=== PATIENT | male | born 1980 | race Caucasian/White ===

== ENCOUNTER 2017-01-20 06:51 | Emergency (ER) | payer OTHER ==
[~2017-01-20] VITALS: Ht 172.7 cm; Wt 74.0 kg
[~2017-01-20 06:51] MED LIST: ALEVE220 MG PO; CIPRO250 MG PO; NOHOMEMEDS; PERCOCET 5/31 TABLET PO; TAMSULOSIN HCL0.4 MG PO; ZOFRAN ODT4 MG PO
[2017-01-20 07:16] LABS: HEMATOCRIT 46.9 % (38.0-50.0); MCHC 34.8 G/DL (30.0-36.0); MCV 86.4 FL (86-99); MEAN PLAT.VOLUME 9.2 uM^3 (9.0-12.4); PLATELET COUNT 296 K/uL (156-360); RBC DIS.WIDTH-SD 37.9 % (39-53); RED BLOOD COUNT 5.43 M/uL (4.00-5.50)
[2017-01-20 07:52] LABS: ANION GAP 12 MEQ/L (2-14); CHLORIDE 103 MEQ/L (99-109); GFR ESTIMATE (CALCULATED) > 59 mL/min/; GLUCOSE 131 mg/dL (70-99); POTASSIUM 4.5 MEQ/L (3.7-5.4); SAMPLE HEMOLYSIS CHECK 1; SAMPLE ICTERIC CHECK 0; SAMPLE LIPEMIA CHECK 0; SODIUM 141 MEQ/L (136-147); UREA NITROGEN (BUN) 17 mg/dL (9-23)
[2017-01-20 08:02] LABS: ADD MIUA? YES; BILIRUBIN NEGATIVE; BLOOD MODERATE; COLOR YELLOW ((YELLOW)); GLUCOSE (STRIP) NEGATIVE; KETONES NEGATIVE; LEUKOCYTES MODERATE; NITRITE NEGATIVE; PROTEIN (STRIP) NEGATIVE; UROBILINOGEN 0.2 MG/DL (0.2-1.0)
[2017-01-20 08:07] LABS: BACTERIA RARE /HPF; EPITHELIAL CELLS RARE /HPF; HYALINE CASTS 0-5 /LPF; MUCUS TRACE /LPF; RED BLOOD CELLS TNTC /HPF (0-5); UCUL ADDED? YES; UNCLASSIFIED CRYSTALS 2+ /HPF; WHITE BLOOD CELLS 15-20 /HPF (0-5)
[2017-01-20] MEDS ORDERED: ZOFRAN ODT4 MG PO (10:07)
[2017-01-20] MEDS ORDERED: KEFLEX500 MG PO (10:07)
[2017-01-20] MEDS ORDERED: FLOMAX0.4 MG PO (10:07)
[2017-01-20] MEDS ORDERED: PHENERGAN25 MG PR (10:07)
[2017-01-20] MEDS ORDERED: MOTRIN800 MG PO (10:21)
[2017-01-20] MEDS ORDERED: PERCOCET 5/31 TABLET PO (10:21)
[2017-01-20 10:32] VITALS: BP 114/67
== END 2017-01-20 10:33 | disposition home or self-care (01) ==
LOC: EME 06:51
DX: N13.2 Hydronephrosis with renal and ureteral calculous obstruction (principal); N30.91 Cystitis, unspecified with hematuria; Z87.442 Personal history of urinary calculi; Z87.891 Personal history of nicotine dependence
CPT/HCPCS: 74176; 80048; 81003; 85027; 87086; 99281; 99285; J1885; J2405; J3010

== ENCOUNTER → 2017-01-25 | Outpatient (CLI) | payer OTHER ==
[~2017-01-25] VITALS: Ht 172.7 cm; Wt 77.1 kg
[~2017-01-25] MED LIST changes: +FLOMAX0.4 MG PO; +KEFLEX500 MG PO; +MOTRIN800 MG PO; +PHENERGAN25 MG PR
== END | disposition home or self-care (01) ==
LOC: AMB 09:45
PROC: 0TF7XZZ Fragmentation in Left Ureter, External Approach (ICD-10-PCS; principal; 2017-01-25)
DX: N13.2 Hydronephrosis with renal and ureteral calculous obstruction (principal); Z87.891 Personal history of nicotine dependence
CPT/HCPCS: 74000; J1885; J2250; J2405; J3010

== ENCOUNTER 2017-10-10 15:45 | Emergency (ER) | payer OTHER ==
[~2017-10-10] VITALS: Ht 172.7 cm; Wt 71.5 kg
[2017-10-10 16:33] LABS: HEMOGLOBIN 16.6 G/DL (12.5-16.6); MCH 31.4 PG (29.0-34.0); MCHC 35.3 G/DL (30.0-36.0); MCV 88.8 FL (86-99); PLATELET COUNT 253 K/uL (156-360); RBC DIS.WIDTH-CV 11.9 % (11.8-14.6); RED BLOOD COUNT 5.29 M/uL (4.00-5.50); WHITE BLOOD COUNT 7.9 K/uL (4.1-10.2)
[2017-10-10 16:54] LABS: CHLORIDE 107 mEq/L (99-109); POTASSIUM 3.9 mEq/L (3.7-5.4); SODIUM 140 mEq/L (136-147)
[2017-10-10 16:55] LABS: GLUCOSE 92 mg/dL (70-99)
[2017-10-10 16:58] LABS: APPEARANCE SL.HAZY ((CLEAR)); BILIRUBIN NEGATIVE; BLOOD SMALL; COLOR YELLOW ((YELLOW)); GLUCOSE (STRIP) NEGATIVE; KETONES 5; LEUKOCYTES TRACE; NITRITE NEGATIVE; PROTEIN (STRIP) NEGATIVE; SPECIFIC GRAVITY 1.018 (1.000-1.030); UROBILINOGEN 0.2 MG/DL (0.2-1.0)
[2017-10-10 16:59] LABS: CREATININE 0.9 mg/dL (0.6-1.3); GFR ESTIMATE (CALCULATED) > 59 mL/min/ (58.99-99999)
[2017-10-10 17:00] LABS: UREA NITROGEN (BUN) 12 mg/dL (9-23)
[2017-10-10 17:12] LABS: BACTERIA NONE SEEN /HPF; EPITHELIAL CELLS NONE SEEN /HPF; MUCUS TRACE /LPF; RED BLOOD CELLS 15-20 /HPF (0-5); UCUL ADDED? NO; WHITE BLOOD CELLS 0-5 /HPF (0-5)
[2017-10-10] MEDS ORDERED: PERCOCET 5/31 TABLET PO (18:05)
[2017-10-10] MEDS ORDERED: MOTRIN800 MG PO (18:06)
[2017-10-10] MEDS ORDERED: ZOFRAN4 MG PO (18:07)
[2017-10-10 18:23] VITALS: BP 154/67
== END 2017-10-10 18:25 | disposition home or self-care (01) ==
LOC: EME 15:45
PROVIDERS: Nurse Practitioner Family
DX: N20.0 Calculus of kidney (principal); Z87.442 Personal history of urinary calculi; F17.200 Nicotine dependence, unspecified, uncomplicated
CPT/HCPCS: 74176; 80048; 81003; 85027; 99281; 99285; J1885